=== PATIENT | male | born 1980 | race Caucasian/White ===

== ENCOUNTER 2023-03-20 11:02 | Emergency (ER) | payer OTHER ==
[~2023-03-20] VITALS: Ht 167.6 cm; Wt 56.7 kg
[2023-03-20 11:08] VITALS: BP 126/63; PULSE 82; RESP 16; TEMP 98; O2SAT 99
== END 2023-03-20 12:43 | disposition home or self-care (01) ==
LOC: MED 11:02
DX: M79.645 Pain in left finger(s) (principal)
CPT/HCPCS: 73140; 99283